=== PATIENT | female | born 2000 | race Caucasian/White ===

== ENCOUNTER → 2020-10-05 | Outpatient (CLI) | payer SELFPAY | LOC: M LABSMTC 11:50 | PROVIDERS: ATTEND Pediatrics | DX: Z20.828 Contact with and (suspected) exposure to other viral communicable diseases (principal) ==

== ENCOUNTER → 2020-10-19 | Outpatient (CLI) | payer SELFPAY | LOC: M LABSMTC 11:34 | PROVIDERS: ATTEND Pediatrics | DX: Z20.828 Contact with and (suspected) exposure to other viral communicable diseases (principal) ==

== ENCOUNTER 2021-01-18 13:24 | Emergency (ER) | payer OTHER, SELFPAY ==
[~2021-01-18] VITALS: Ht 157.5 cm; Wt 59.8 kg
[2021-01-18] MEDS ORDERED: OMEP-218 PO (13:29)
[2021-01-18] MEDS ORDERED: BUDE10.2 INH (13:29)
[2021-01-18 13:53] LABS: BASO % 0.8 % (0.0-1.0); EOS % 0.6 % (0.0-3.0); HEMATOCRIT 46.3 % (36.0-47.0); HEMOGLOBIN 15.5 g/dl (12.0-15.5); LYMPH # 1.5 10^3/uL (1.5-5.0); LYMPH % 28.2 % (24.0-44.0); MEAN CORPUSCULAR HGB CONC 33.5 g/dl (32.0-36.5); MEAN CORPUSCULAR VOLUME 89.6 fl (80.0-96.0); MONO # 0.4 10^3/uL (0.0-0.8); MONO % 7.6 % (2.0-8.0); NEUTROPHILS # 3.3 10^3/uL (1.5-8.5); NEUTROPHILS % 62.6 % (36.0-66.0); PLATELET COUNT, AUTOMATED 229 10^3/uL (150-450); RED BLOOD COUNT 5.17 10^6/uL (4.00-5.40); WHITE BLOOD COUNT 5.3 10^3/uL (4.0-10.0)
[2021-01-18] MEDS ORDERED: NS 1,000 ML IV ONE (14:00)
[2021-01-18] MEDS ORDERED: KETOROLAC 30 MG/ML 1ML VIAL IV ONE (14:05)
[2021-01-18] MEDS ORDERED: ONDANSETRON 4MG/2ML VIAL IV ONE (14:05)
[2021-01-18 14:20] LABS: ALBUMIN 4.5 GM/DL (3.2-5.2); BILIRUBIN,DIRECT 0.3 MG/DL (0.0-0.2); BILIRUBIN,TOTAL 1.1 MG/DL (0.2-1.0)
--- NOTE | 2021-01-18 15:04 | REP ---
INDICATION: R pelvic pain, h/o ovarian cysts and endometriosis. COMPARISON: None. TECHNIQUE: Transabdominal and transvaginal scanning were performed. FINDINGS: Uterine dimensions are normal at 8.1 x 4.3 x 5.0 cm. Endometrial echo is 1.3 cm thick and centrally placed. No free fluid is seen in the cul-de-sac. Visualized bladder lynne are smooth. The right ovary has dimensions of 3.9 x 2.1 x 3.2 cm. It's Doppler flow is normal with a resistive index of 0.59. There is a complex cyst in the right ovary measuring 5.6 x 5.5 x 6.5 cm. There is an intramural nodule within the cyst measuring 0.6 x 0.7 x 0.6 cm. There is a trace of free fluid.. The left ovary dimensions are normal as well at 2.8 x 2.1 x 2.1 cm. It's Doppler flow was normal with resistive index of 0.45. The left ovary is normal in appearance.. IMPRESSION: 6.5 cm cystic lesion in the right ovary containing intra intramural nodule. This is nonspecific. There is a trace of fluid in the cul-de-sac.. <Electronically signed by Juan Solo > 01/18/21 [id number]
--- NOTE | 2021-01-18 15:18 | REP ---
INDICATION: hyperbilirubinemia. COMPARISON: None. TECHNIQUE: Right upper quadrant sonography. FINDINGS: Scanning through the right upper quadrant of the abdomen demonstrates a normal sized, thin-walled gallbladder without evidence of stone or polyp. Common bile duct is normal measuring 0.3 cm in greatest diameter. No focal liver lesion is seen. Liver size is normal. No pancreatic abnormality is observed. No right renal abnormality is seen. There is no evidence of ascites. The right kidney measures 9.2 x 4.9 x 4.0 cm. IMPRESSION: Negative right upper quadrant sonography. <Electronically signed by Juan Solo > 01/18/21 [id number]
[2021-01-18 15:32] VITALS: BP 116/61
[2021-01-18] MEDS ORDERED: ONDA4TAB6 PO (15:32)
[2021-01-18] MEDS ORDERED: IBUP80TA PO (15:32)
--- NOTE | 2021-01-19 12:36 | ED PDOC ---
Post-Departure Follow-Up pelvic us faxed to fernanda eason and dr acevedo for fu Darrell Jackman MD Jan 19, 2021 12:36
== END 2021-01-18 15:47 | disposition home or self-care (01) ==
LOC: M ED 13:24
DX: N83.201 Unspecified ovarian cyst, right side (principal); J45.909 Unspecified asthma, uncomplicated; K21.9 Gastro-esophageal reflux disease without esophagitis; N80.9 Endometriosis, unspecified; Z88.0 Allergy status to penicillin; Z79.899 Other long term (current) drug therapy
CPT/HCPCS: 76705; 76830; 76856; 80047; 80076; 81001; 83690; 84702; 85025; 87086; 93976; 96361; 96374; 96375; 99284; J1885; J2405

== ENCOUNTER 2021-01-23 15:05 | Emergency (ER) | payer OTHER ==
[~2021-01-23] VITALS: Ht 157.5 cm; Wt 60.6 kg
[~2021-01-23 15:05] MED LIST: BUDE10.2 INH; IBUP80TA PO; OMEP-218 PO; ONDA4TAB6 PO
[2021-01-23] MEDS ORDERED: MORPHINE 4 MG/ML 1ML VIAL/SYRINGE (J2270) IV ONE (16:20)
[2021-01-23] MEDS ORDERED: NS 1,000 ML IV ONE (16:20)
[2021-01-23] MEDS ORDERED: ONDANSETRON 4MG/2ML VIAL IV ONE (16:20)
[2021-01-23 17:00] LABS: BASO % 0.6 % (0.0-1.0); EOS % 0.3 % (0.0-3.0); HEMATOCRIT 43.4 % (36.0-47.0); HEMOGLOBIN 14.4 g/dl (12.0-15.5); LYMPH # 1.5 10^3/uL (1.5-5.0); LYMPH % 20.7 % (24.0-44.0); MEAN CORPUSCULAR HEMOGLOBIN 29.9 pg (27.0-33.0); MEAN CORPUSCULAR HGB CONC 33.2 g/dl (32.0-36.5); MONO # 0.4 10^3/uL (0.0-0.8); MONO % 5.8 % (2.0-8.0); NEUTROPHILS # 5.1 10^3/uL (1.5-8.5); NEUTROPHILS % 72.3 % (36.0-66.0); PLATELET COUNT, AUTOMATED 238 10^3/uL (150-450); RED BLOOD COUNT 4.82 10^6/uL (4.00-5.40); WHITE BLOOD COUNT 7.1 10^3/uL (4.0-10.0)
--- NOTE | 2021-01-23 17:31 | REP ---
INDICATION: RLQ pain, current large ovarian cyst, pain worsening. COMPARISON: 01/18/2021. TECHNIQUE: Transabdominal and transvaginal scanning performed. FINDINGS: Uterine dimensions are 8.5 x 4.7 x 4.8 cm. Endometrial echo is 13 mm in AP dimension and centrally placed. The bladder is empty. The right ovary has dimensions of 2.0 x 2.8 x 0.9 cm. It's Doppler flow is normal with a resistive index of 0.37. The left ovary dimensions are 8.3 x 6.4 x 7.2 cm. It's Doppler flow was normal with resistive index of 0.66. Once again there is a cyst in the pelvis, this appears to arise from the left ovary, measuring 7.7 x 5.9 x 6.4 cm, containing a mural nodule approximately 1 cm in diameter. There appears to be a thin peripheral septation. No free fluid is seen in the cul-de-sac. IMPRESSION: Complex cyst in the pelvis, on today's images it is felt to arise from the left ovary, previously it was felt to arise from the right ovary. It has increased in size now with a maximum diameter of 7.7 cm, previously 6.5 cm. No torsion or free fluid. <Electronically signed by Joseph Glaser > 01/23/21 [id number]
[2021-01-23 17:33] LABS: BILIRUBIN,DIRECT 0.2 MG/DL (0.0-0.2); BILIRUBIN,TOTAL 1.6 MG/DL (0.2-1.0); TOTAL PROTEIN 7.3 GM/DL (6.4-8.2)
[2021-01-23] MEDS ORDERED: HYDR-3713 PO (18:29)
[2021-01-23] MEDS ORDERED: IBUP-1022 PO (18:29)
[2021-01-23 18:56] VITALS: BP 124/72
== END 2021-01-23 19:03 | disposition home or self-care (01) ==
LOC: M ED 15:05
DX: N83.201 Unspecified ovarian cyst, right side (principal); Z88.0 Allergy status to penicillin; Z79.899 Other long term (current) drug therapy
CPT/HCPCS: 76830; 76856; 80047; 80076; 81001; 83690; 84702; 85025; 93976; 96361; 96374; 96375; 99284; J2270; J2405

== ENCOUNTER → 2023-07-01 | Outpatient (CLI) | payer OTHER ==
[~2023-07-01] MED LIST changes: +HYDR-3713 PO; +IBUP-1022 PO; +OMEP-173 PO; -OMEP-218 PO
== END ==
LOC: M WHC 07:54
PROVIDERS: ATTEND Obstetrics & Gynecology Obstetrics
DX: O20.0 Threatened abortion (principal); Z3A.01 Less than 8 weeks gestation of pregnancy

== ENCOUNTER → 2024-06-18 | Outpatient (CLI) | payer OTHER ==
[~2024-06-18] MED LIST changes: +ONDA-282 PO; -ONDA4TAB6 PO; +PROHANCE 279.3MG/ML 15ML VIAL ONE
== END ==
LOC: M PLAIMG 11:26
PROVIDERS: ATTEND Surgery Vascular Surgery
DX: N94.89 Other specified conditions associated with female genital organs and menstrual cycle (principal)
CPT/HCPCS: 72198; A9576

== ENCOUNTER → 2024-09-25 | Outpatient (REF) ==
[~2024-09-25] MED LIST changes: -PROHANCE 279.3MG/ML 15ML VIAL ONE
== END ==
LOC: M EMP 07:56
PROVIDERS: ATTEND Family Medicine
DX: Z11.52 Encounter for screening for COVID-19 (principal)

== ENCOUNTER → 2025-07-25 | Outpatient (REF) ==
[~2025-07-25] MED LIST changes: -IBUP-1022 PO; +IBUP600T42 PO
== END ==
LOC: M EMP 07:24
PROVIDERS: ATTEND Family Medicine
DX: Z11.52 Encounter for screening for COVID-19 (principal)